=== PATIENT | male | born 1985 | race Caucasian/White ===

== ENCOUNTER → 2019-06-28 | Outpatient (CLI) | payer OTHER ==
[2019-06-28 15:47] LABS: Influenza A Negative (NEGATIVE); Influenza B Negative (NEGATIVE)
== END ==
LOC: LAB SHORT 14:17 → LAB 14:17
PROVIDERS: Nurse Practitioner
DX: R05 Cough (principal)
CPT/HCPCS: 87804

== ENCOUNTER → 2024-04-29 | Outpatient (CLI) | payer OTHER ==
[2024-04-29 12:38] LABS: Campylobacter Sp Not Detected (NOT DETECT); Cryptosporidium Not Detected (NOT DETECT); Cyclospora Cayetanensis Not Detected (NOT DETECT); E. Coli O157 Not Detected (NOT DETECT); Enteroaggregative E. coli-EAEC Not Detected (NOT DETECT); Enteropathogenic E. coli-EPEC Not Detected (NOT DETECT); Enterotoxigenic E. coli-ETEC Not Detected (NOT DETECT); Plesiomonas Shigelloides Not Detected (NOT DETECT); Salmonella Sp Not Detected (NOT DETECT); Shiga Toxin-prod E. coli-STEC Not Detected (NOT DETECT); Shigella/Enteroin E. coli-EIEC Not Detected (NOT DETECT); Vibrio Cholerae Not Detected (NOT DETECT); Vibrio Sp Not Detected (NOT DETECT); Yersinia Enterocolitica Not Detected (NOT DETECT)
[2024-04-29 12:39] LABS: Adenovirus F 40/41 Not Detected (NOT DETECT); Astrovirus Not Detected (NOT DETECT); Entamoeba Histolytica Not Detected (NOT DETECT); Giardia Lamblia Not Detected (NOT DETECT); Norovirus GI/GII Not Detected (NOT DETECT); Rotavirus A Not Detected (NOT DETECT); Sapovirus Not Detected (NOT DETECT)
[2024-05-04 21:58] LABS: OVA AND PARASITE,FECAL INTERP Positive (Negative)
== END | disposition home or self-care (01) ==
LOC: LAB 09:14 → LAB SHORT 09:14
PROVIDERS: Nurse Practitioner Family
DX: K58.9 Irritable bowel syndrome, unspecified (principal); K59.00 Constipation, unspecified; R14.0 Abdominal distension (gaseous)
CPT/HCPCS: 87177; 87209; 87338; 87507

== ENCOUNTER 2024-11-25 09:30 | Day surgery (SDC) | payer OTHER ==
[~2024-11-25] VITALS: Ht 175.3 cm; Wt 73.2 kg
[2024-11-25] MEDS ORDERED: CYMBALTA20 M1 (09:42)
[2024-11-25] MEDS ORDERED: Midazolam HCL 1 MG/ML 5MLVIAL ONE (10:36)
[2024-11-25 12:02] VITALS: BP 119/79
== END 2024-11-25 12:02 | disposition home or self-care (01) ==
LOC: ORSCSDS 09:30
PROVIDERS: Internal Medicine Gastroenterology
PROC: 0DJD8ZZ Inspection of Lower Intestinal Tract, Via Natural or Artificial Opening Endoscopic (ICD-10-PCS; principal; 2024-11-25 11:00)
DX: K62.5 Hemorrhage of anus and rectum (principal); R10.32 Left lower quadrant pain; K59.00 Constipation, unspecified; Z87.891 Personal history of nicotine dependence; Z79.899 Other long term (current) drug therapy
CPT/HCPCS: J2250; J2704; J7120